=== PATIENT | female | born 1980 | race Two or more races ===

== ENCOUNTER 2019-03-03 09:21 | Emergency (ER) | payer OTHER ==
[2019-03-03 09:38] VITALS: BP 121/89; PULSE 56; TEMP 98; BMI 25.8
[2019-03-03] MEDS ORDERED: ONDANSETRON 4 MG/2 ML VIAL IVPUSH ONE (09:44)
[2019-03-03] MEDS ORDERED: PANTOPRAZOLE SODIUM 40 MG in SODIUM CHLORIDE 100 ML IVPB ONE (09:44)
[2019-03-03] MEDS ORDERED: KETOROLAC TROMETHAMINE 30 MG/1 ML VIAL IVPUSH ONE (09:44)
[2019-03-03] MEDS ORDERED: SODIUM CHLORIDE 1,000 ML IV STA (09:44)
--- NOTE | 2019-03-03 09:53 | PDOC ---
History of Present Illness - General Chief Complaint: Pain, Acute Stated Complaint: abd.pain/vomiting w/diarrhea. Time Seen by Provider: 03/03/19 09:43 History Source: Patient Exam Limitations: No Limitations - History of Present Illness Travel History: No Initial Comments: 03/03/19 09:40 38-year-old female presents to ED with complaints of nausea vomiting diarrhea since this morning. Patient states similar symptoms in the past was prescribed omeprazole but does not take that medication anymore. Patient denies medical history otherwise recent travel, recent illness, recent sick contacts. Patient denies smoking and alcohol intake. Patient has no urinary complaints or irregular menstruation pattern. Patient states generalized abdominal cramping greater in the upper mid abdomen. Timing/Duration: reports: constant Quality: reports: moderate, cramping Abdominal Pain Onset Location: reports: epigastric, generalized abdomen Pain Radiation: reports: epigastric Activities at Onset: reports: none Aggravating Factors: improves with: None Alleviating Factors: improves with: Vomiting Past History - Travel Traveled outside of the country in the last 30 days: No Close contact w/someone who was outside of country & ill: No - Past Medical History Allergies/Adverse Reactions: Allergies Allergy/AdvReac Type Severity Reaction Status Date / Time No Known Drug Allergies Allergy Verified 10/03/12 08:05 Home Medications: Ambulatory Orders NK [No Known Home Medication] 03/03/19 Anemia: No Asthma: No Cancer: No Cardiac Disorders: No CVA: No COPD: No CHF: No Dementia: No Diabetes: No GI Disorders: No Disorders: No HTN: No Hypercholesterolemia: No Liver Disease: No Seizures: No Thyroid Disease: No - Surgical History Abdominal Surgery: No Appendectomy: No Cardiac Surgery: No Cholecystectomy: No Lung Surgery: No Neurologic Surgery: No Orthopedic Surgery: No - Immunization History Immunization Up to Date: No - Psycho Social/Smoking Cessation Hx Smoking History: Never smoked Have you smoked in the past 12 months: No Information on smoking cessation initiated: No Hx Alcohol Use: No Drug/Substance Use Hx: No Substance Use Type: None Hx Substance Use Treatment: No Patient Lives Alone: No Lives with/in: spouse/SO Abd/GI Specific PMHX - Complaint Specific PMHX GERD: Yes Review of Systems - Review of Systems Able to Perform ROS?: Yes Constitutional: No: Symptoms Reported HEENTM: No: Symptoms Reported Respiratory: No: Symptoms reported Cardiac (ROS): No: Symptoms Reported ABD/GI: Yes: Diarrhea, Nausea, Poor Appetite, Poor Fluid Intake, Vomiting, Abdominal cramping. No: Constipated : No: Symptoms Reported Musculoskeletal: No: Symptoms Reported Integumentary: No: Symptoms Reported Neurological: No: Symptoms reported Endocrine: No: Symptoms Reported *Physical Exam - Vital Signs Last Vital Signs Temp Pulse Resp BP Pulse Ox 98.0 F 56 L 18 121/89 98 03/03/19 09:24 03/03/19 09:24 03/03/19 09:24 03/03/19 09:24 03/03/19 09:24 - Physical Exam General Appearance: Yes: Nourished, Appropriately Dressed. No: Apparent Distress HEENT: positive: EOMI, STEVE. negative: Pale Conjunctivae Neck: positive: Normal Thyroid Respiratory/Chest: positive: Lungs Clear, Normal Breath Sounds. negative: Respiratory Distress, Accessory Muscle Use Cardiovascular: positive: Regular Rhythm, Regular Rate. negative: Murmur Gastrointestinal/Abdominal: positive: Soft, Tenderness (Epigastric) Musculoskeletal: negative: CVA Tenderness Extremity: positive: Normal Inspection Integumentary: positive: Normal Color, Warm, Moist Neurologic: positive: Motor Strength 5/5 (Ambulatory) ED Treatment Course - LABORATORY CBC & Chemistry Diagram: 03/03/19 10:00 03/03/19 10:00 Medical Decision Making - Medical Decision Making 03/03/19 09:54 chief complaint: Nausea vomiting diarrhea generalized abdominal cramping grade and epi gastric region since this a.m. Patient states similar symptoms in the past and was given omeprazole which she has not taken in approximately 9 months. No other complaints Exam: Patient actively vomiting clear liquid fluid and appears uncomfortable. Patient had tenderness to the epigastric region. No CVA tenderness or lower abdominal tenderness. Plan: Labs, urine, IV access, Zofran, Protonix and IV fluids Toradol, 03/03/19 11:17 Laboratory Tests 03/03/19 03/03/19 03/03/19 10:00 10:00 10:00 WBC 5.5 Hgb 12.6 Hct 38.9 Plt Count 264 Absolute Neuts (auto) 3.2 Neutrophils % 58.7 D Random Glucose Calcium Magnesium Total Bilirubin AST ALT Alkaline Phosphatase Total Protein Albumin Urine Appearance Cloudy Urine pH 5.5 Ur Specific [place] 1.042 H Ur Leukocyte Esterase 1+ H Urine WBC (Auto) 70 Urine RBC (Auto) 1 Urine Casts (Auto) 45 U Epithel Cells (Auto) 8.0 Urine Bacteria (Auto) 156.7 Urine HCG, Qual Negative 03/03/19 03/03/19 10:00 10:00 WBC Hgb Hct Plt Count Absolute Neuts (auto) Neutrophils % Random Glucose 113 H Calcium 8.5 Magnesium 2.0 Total Bilirubin 0.1 L AST 10 L ALT 20 Alkaline Phosphatase 67 Total Protein 6.9 Albumin 3.3 L Urine Appearance Urine pH Ur Specific [place] Ur Leukocyte Esterase Urine WBC (Auto) Urine RBC (Auto) Urine Casts (Auto) U Epithel Cells (Auto) Urine Bacteria (Auto) Urine HCG, Qual Awaiting Urine culture collection. 03/03/19 11:58 Urine culture sent. Patient states feeling much better and amatory in the ER. Patient requesting to go home. Patient will be given a prescription for antibiotic secondary to bacteria in urine along with Zofran for nausea. Discharge - Discharge Information Problems reviewed: Yes Clinical Impression/Diagnosis: Nausea vomiting and diarrhea Condition: Improved Disposition: HOME - Follow up/Referral Referrals: Mendel Riggs MD [Primary Care Provider] - - Patient Discharge Instructions Patient Printed Discharge Instructions: Nausea and Vomiting-Adult Additional Instructions: Please take medication as needed for nausea. Please take antibiotics as prescribed for urinary tract infection. Drink plenty of fluids. Avoid spicy greasy food for the next 48 hours and then you may advance your diet as tolerated - Post Discharge Activity
[2019-03-03] MEDS ORDERED: ONDANSETRON 4 MG/2 ML VIAL ONE (09:57)
[2019-03-03] MEDS ORDERED: PANTOPRAZOLE SODIUM 40 MG/100 ML BAG IVPB ONE (09:57)
[2019-03-03] MEDS ORDERED: KETOROLAC TROMETHAMINE 30 MG/1 ML VIAL ONE (09:57)
[2019-03-03 10:07] LABS: BASO % 0.8 % (0-2.0); HEMATOCRIT 38.9 % (32.4-45.2); HEMOGLOBIN 12.6 GM/dL (10.7-15.3); LYMPH % 33.9 % (8-40); MCH 27.2 pg (25.7-33.7); MCHC 32.4 g/dl (32.0-36.0); MEAN PLT VOLUME 7.6 fl (7.5-11.1); MONO % 4.6 % (3.8-10.2); NEUT % 58.7 % (42.8-82.8); PLATELET COUNT 264 K/MM3 (134-434); RBC 4.63 M/mm3 (3.60-5.2); RDW 16.1 % (11.6-15.6); WHITE BLOOD COUNT 5.5 K/mm3 (4.0-10.0)
[2019-03-03 10:09] LABS: HYALINE CASTS 45 /lpf (0-8); PH,URINE 5.5 (5.0-8.0); URINE APPEARANCE CLOUDY; URINE BACTERIA 156.7 /hpf (NEGATIVE); URINE BILIRUBIN NEGATIVE (NEGATIVE); URINE COLOR YELLOW; URINE GLUCOSE (UA) NEGATIVE (NEGATIVE); URINE KETONE NEGATIVE (NEGATIVE); URINE LEUK ESTERASE 1+ (NEGATIVE); URINE NITRITE NEGATIVE (NEGATIVE); URINE PROTEIN TRACE (NEGATIVE); URINE RBC 1 /hpf (0-4); URINE UROBILINOGEN 0.2 mg/dL (0.2-1.0); URINE WBC 70 /hpf (0-5)
[2019-03-03 10:36] LABS: ALBUMIN 3.3 g/dl (3.4-5.0); BILIRUBIN,TOTAL 0.1 mg/dL (0.2-1); BLOOD UREA NITROGEN 15.2 mg/dL (7-18); CALCIUM 8.5 mg/dL (8.5-10.1); CREATININE 0.8 mg/dL (0.55-1.3); POTASSIUM 4.2 mmol/L (3.5-5.1); TOT PROT 6.9 g/dl (6.4-8.2)
[2019-03-03 11:43] LABS: URINE CRYSTALS MODERATE /hpf
== END 2019-03-03 12:11 | disposition home or self-care (01) ==
LOC: JER 09:21
PROC: 3E033GC Introduction of Other Therapeutic Substance into Peripheral Vein, Percutaneous Approach (ICD-10-PCS; principal; 2019-03-03)
PROC: 3E033GC Introduction of Other Therapeutic Substance into Peripheral Vein, Percutaneous Approach (ICD-10-PCS; 2019-03-03)
PROC: 3E0333Z Introduction of Anti-inflammatory into Peripheral Vein, Percutaneous Approach (ICD-10-PCS; 2019-03-03)
DX: N39.0 Urinary tract infection, site not specified (principal); R11.2 Nausea with vomiting, unspecified; R19.7 Diarrhea, unspecified
CPT/HCPCS: 36415; 80053; 81003; 83735; 84703; 85025; 87086; 96365; 96375; 99282-25; J7030

== ENCOUNTER 2019-04-09 07:03 | Emergency (ER) | payer OTHER ==
[2019-04-09 07:14] VITALS: BP 139/85; PULSE 60; TEMP 97.5; BMI 26.5
[2019-04-09] MEDS ORDERED: morphine CARPU-JECT 2 MG/1 ML DISP.SYRIN IVPUSH ONE (08:01)
[2019-04-09] MEDS ORDERED: ONDANSETRON 4 MG/2 ML VIAL IVPUSH ONE (08:01)
[2019-04-09] MEDS ORDERED: SODIUM CHLORIDE 0.9% 500 ML INFUS.BAG IV ONE (08:02)
--- NOTE | 2019-04-09 08:23 | PDOC ---
*Physical Exam - Vital Signs Last Vital Signs Temp Pulse Resp BP Pulse Ox 97.5 F L 60 17 139/85 100 04/09/19 07:12 04/09/19 07:12 04/09/19 07:12 04/09/19 07:12 04/09/19 07:12 - Physical Exam Comments: 04/09/19 08:22 The patient was examined by [MAKAYLA Elizabeth] under my direct supervision. I personally evaluated the patient. I concur with the above findings and the plan of care. ED Treatment Course - LABORATORY CBC & Chemistry Diagram: 04/09/19 08:51 04/09/19 08:51 Discharge - Discharge Information Problems reviewed: Yes Clinical Impression/Diagnosis: Abdominal pain Qualifiers: Abdominal location: unspecified location Qualified Code(s): R10.9 - Unspecified abdominal pain Condition: Stable Disposition: HOME - Follow up/Referral Referrals: Mendel Riggs MD [Primary Care Provider] - - Patient Discharge Instructions Additional Instructions: Follow-up with your doctor and a general surgeon within 1 week Return to the ED if worsening abdominal pain, nausea, vomiting, fever, chills You must avoid fatty, greasy foods in order to prevent abdominal pain given that you have a large gallstone. - Post Discharge Activity
[2019-04-09] MEDS ORDERED: MORPHINE SULFATE 2 MG/ML VIAL ONE (08:24)
[2019-04-09] MEDS ORDERED: ONDANSETRON 4 MG/2 ML VIAL ONE (08:25)
[2019-04-09 09:12] LABS: BASO % 0.4 % (0-2.0); EOS % 0.1 % (0-4.5); HEMATOCRIT 40.4 % (32.4-45.2); HEMOGLOBIN 13.3 GM/dL (10.7-15.3); LYMPH % 18.4 % (8-40); MCH 27.2 pg (25.7-33.7); MCHC 32.9 g/dl (32.0-36.0); MEAN CELL VOLUME 82.6 fl (80-96); MEAN PLT VOLUME 7.8 fl (7.5-11.1); MONO % 2.3 % (3.8-10.2); NEUT % 78.8 % (42.8-82.8); PLATELET COUNT 254 K/MM3 (134-434); RDW 18.2 % (11.6-15.6); WHITE BLOOD COUNT 5.3 K/mm3 (4.0-10.0)
[2019-04-09 09:17] LABS: ALBUMIN 3.9 g/dl (3.4-5.0); BILIRUBIN,TOTAL 0.3 mg/dL (0.2-1); BLOOD UREA NITROGEN 9.8 mg/dL (7-18); CALCIUM 9.6 mg/dL (8.5-10.1); CREATININE 0.7 mg/dL (0.55-1.3); MAGNESIUM 2.1 mg/dL (1.8-2.4); POTASSIUM 4.3 mmol/L (3.5-5.1); TOT PROT 7.6 g/dl (6.4-8.2)
[2019-04-09 09:42] LABS: INR 0.96 (0.83-1.09); PROTHROMBIN TIME (PATIENT) 11.3 SEC (9.7-13.0)
[2019-04-09 09:45] LABS: ACTIVATED PTT 29.6 SECONDS (25.2-36.5)
--- NOTE | 2019-04-09 11:02 | PDOC ---
History of Present Illness - General Chief Complaint: Pain Stated Complaint: ABD PAIN Time Seen by Provider: 04/09/19 07:46 History Source: Patient Exam Limitations: No Limitations - History of Present Illness Initial Comments: 04/09/19 10:57 38-year-old female denies past medical history presents with midepigastric pain radiating to the back which awoke her from sleep at 1 AM today. Developed nausea and vomiting at 3 AM, had 5 episodes of non-bloody vomiting. Had [place] food for dinner last night. States that she had a normal endoscopy by a GI doctor on March 16. Denies fever, chills, diarrhea, chest pain, shortness of breath or any other symptoms. LMP 04/03/19. Did not take any pain meds prior to arrival. ROS: GENERAL/CONSTITUTIONAL: No fever, chills, weakness, dizziness HEAD, EYES, EARS, NOSE AND THROAT: No changes in vision, No ear pain or discharge, No sore throat CARDIOVASCULAR: No chest pain RESPIRATORY: No shortness of breath or cough GASTROINTESTINAL: Positive abdominal pain, nausea, vomiting, denies diarrhea or constipation GENITOURINARY: No dysuria MUSCULOSKELETAL: No neck or back pain SKIN: No rash NEUROLOGIC: No headache, vertigo, loss of consciousness, or loss of sensation PE: GENERAL: Appears uncomfortable HEAD: NCAT EYES: Pupils equal, round and reactive to light, sclera anicteric, conjunctiva clear ENT: pharynx: no erythema, no exudate, uvula midline NECK: supple CHEST: nontender RESP: clear, no w/r/r CARDIO: rrr, no m/g/r ABD: +BS, soft, midepigastric tenderness to palpation, positive right upper quadrant tenderness to palpation, no guarding, no rebound BACK: no midline spinal ttp, no CVAT EXTREMITIES: Normal range of motion, no edema NEUROLOGICAL: Normal speech, normal gait SKIN: Warm, Dry Is this a multiple visit Asthma Patient?: No Past History - Past Medical History Allergies/Adverse Reactions: Allergies Allergy/AdvReac Type Severity Reaction Status Date / Time No Known Drug Allergies Allergy Verified 04/09/19 07:14 Home Medications: Ambulatory Orders NK [No Known Home Medication] 04/09/19 Anemia: No Asthma: No Cancer: No Cardiac Disorders: No CVA: No COPD: No CHF: No Dementia: No Diabetes: No GI Disorders: No Disorders: No HTN: No Hypercholesterolemia: No Liver Disease: No Seizures: No Thyroid Disease: No - Surgical History Abdominal Surgery: No (LIPOSUCTION) Appendectomy: No Cardiac Surgery: No Cholecystectomy: No Lung Surgery: No Neurologic Surgery: No Orthopedic Surgery: No - Immunization History Immunization Up to Date: No - Psycho Social/Smoking Cessation Hx Smoking History: Never smoked Have you smoked in the past 12 months: No Information on smoking cessation initiated: No Hx Alcohol Use: No Drug/Substance Use Hx: No Substance Use Type: None Hx Substance Use Treatment: No *Physical Exam - Vital Signs Last Vital Signs Temp Pulse Resp BP Pulse Ox 97.5 F L 60 17 139/85 9 L 04/09/19 07:12 04/09/19 07:12 04/09/19 07:12 04/09/19 07:12 04/09/19 09:01 ED Treatment Course - LABORATORY CBC & Chemistry Diagram: 04/09/19 08:51 04/09/19 08:51 - ADDITIONAL ORDERS Additional order review: Laboratory Results 04/09/19 04/09/19 04/09/19 08:51 08:51 08:51 PT with INR 11.30 INR 0.96 PTT (Actin FS) 29.6 Sodium Potassium Chloride Carbon Dioxide Anion Gap BUN Creatinine Est GFR (CKD-EPI)AfAm Est GFR (CKD-EPI)NonAf Random Glucose Calcium Magnesium Cancelled Total Bilirubin AST ALT Alkaline Phosphatase Total Protein Albumin Lipase Cancelled 04/09/19 08:51 PT with INR INR PTT (Actin FS) Sodium 137 Potassium 4.3 Chloride 103 Carbon Dioxide 30 Anion Gap 4 L BUN 9.8 Creatinine 0.7 Est GFR (CKD-EPI)AfAm 128.28 Est GFR (CKD-EPI)NonAf 110.69 Random Glucose 120 H Calcium 9.6 Magnesium 2.1 Total Bilirubin 0.3 AST 36 ALT 52 Alkaline Phosphatase 79 Total Protein 7.6 Albumin 3.9 Lipase 82 04/09/19 08:51 RBC 4.90 MCV 82.6 MCHC 32.9 RDW 18.2 H MPV 7.8 Neutrophils % 78.8 D Lymphocytes % 18.4 D Monocytes % 2.3 L Eosinophils % 0.1 D Basophils % 0.4 - RADIOLOGY Radiology Studies Ordered: Category Date Time Status ABDOMEN US -LIMITED [US] Stat Ultrasound 04/09/19 07:55 Completed - Medications Given in the ED: ED Medications Discontinued Medications Generic Name Dose Route Start Last Admin Trade Name Mary PRN Reason Stop Dose Admin Morphine Sulfate 2 mg 04/09/19 08:01 04/09/19 08:30 Morphine Injection - IVPUSH 04/09/19 08:02 2 mg ONCE ONE Administration Ondansetron HCl 4 mg 04/09/19 08:01 04/09/19 08:30 Zofran Injection IVPUSH 04/09/19 08:02 4 mg ONCE ONE Administration Sodium Chloride 1,000 ml 04/09/19 08:02 04/09/19 08:59 Normal Saline - IV 04/09/19 08:03 1,000 ml ONCE ONE Administration Medical Decision Making - Medical Decision Making 04/09/19 11:02 38-year-old female presents with midepigastric and right upper quadrant pain radiating to the back at 1 AM today, then developed nausea and vomiting at 3 AM. Order IV fluids IV morphine, Zofran Labs Urine Abdominal ultrasound Reassess [id number] Discussed ultrasound results with patient She has a large calculus within the neck of the gallbladder Her pain has resolved after IV morphine and fluids patient understands she needs to follow-up with her doctor and a general surgeon within 1 week Dietary modifications discussed Return precautions given Discharge - Discharge Information Problems reviewed: Yes Clinical Impression/Diagnosis: Abdominal pain Condition: Stable Disposition: HOME - Follow up/Referral Referrals: Mendel Riggs MD [Primary Care Provider] - - Patient Discharge Instructions Additional Instructions: Follow-up with your doctor and a general surgeon within 1 week Return to the ED if worsening abdominal pain, nausea, vomiting, fever, chills You must avoid fatty, greasy foods in order to prevent abdominal pain given that you have a large gallstone. - Post Discharge Activity
[2019-04-09 11:41] LABS: PH,URINE 8.5 (5.0-8.0); URINE APPEARANCE CLEAR; URINE BILIRUBIN NEGATIVE (NEGATIVE); URINE COLOR YELLOW; URINE GLUCOSE (UA) NEGATIVE (NEGATIVE); URINE KETONE NEGATIVE (NEGATIVE); URINE LEUK ESTERASE NEGATIVE (NEGATIVE); URINE NITRITE NEGATIVE (NEGATIVE); URINE PROTEIN NEGATIVE (NEGATIVE); URINE UROBILINOGEN 0.2 mg/dL (0.2-1.0)
== END 2019-04-09 11:39 | disposition home or self-care (01) ==
LOC: JER 07:03
PROC: 3E033NZ Introduction of Analgesics, Hypnotics, Sedatives into Peripheral Vein, Percutaneous Approach (ICD-10-PCS; principal; 2019-04-09)
PROC: 3E033GC Introduction of Other Therapeutic Substance into Peripheral Vein, Percutaneous Approach (ICD-10-PCS; 2019-04-09)
PROC: 3E0337Z Introduction of Electrolytic and Water Balance Substance into Peripheral Vein, Percutaneous Approach (ICD-10-PCS; 2019-04-09)
DX: R10.9 Unspecified abdominal pain (principal)
CPT/HCPCS: 36415; 76705-TC; 80053; 81003; 83690; 83735; 84703; 85025; 85610; 85730; 87086; 99283-25

== ENCOUNTER 2021-09-05 05:15 | Day surgery (SDC) | payer OTHER ==
[2021-09-02 15:06] VITALS: BMI 28.3
[2021-09-05 09:21] LABS: EPI CELLS >36 /uL (0-25.1); HYALINE CASTS 0 /uL (0-3.1); PH,URINE 5.5 (5.0-8.0); URINE APPEARANCE CLOUDY; URINE BACTERIA 395 /uL (0-1359); URINE BILIRUBIN NEGATIVE (NEGATIVE); URINE COLOR ORANGE; URINE GLUCOSE (UA) NEGATIVE (NEGATIVE); URINE KETONE NEGATIVE (NEGATIVE); URINE LEUK ESTERASE TRACE (NEGATIVE); URINE NITRITE NEGATIVE (NEGATIVE); URINE PROTEIN NEGATIVE (NEGATIVE); URINE RBC 3770 /uL (0-23.9); URINE UROBILINOGEN 0.2 mg/dL (0.2-1.0); URINE WBC 39 /uL (0-25.8)
[2021-09-05] MEDS ORDERED: LIDOCAINE 1%/EPI 1:100000 (20 ML MULTI DOSE VIAL) ONE (10:10)
[2021-09-05] MEDS ORDERED: LIDOCAINE HCL 2% 100 MG/5 ML DISP.SYRIN ONE (10:23)
[2021-09-05] MEDS ORDERED: MIDAZOLAM HCL 2 MG/2 ML SINGLE DOSE VIAL ONE (10:23)
[2021-09-05] MEDS ORDERED: DEXAMETHASONE SOD PHOSPHATE 4 MG/1 ML VIAL ONE (10:23)
[2021-09-05] MEDS ORDERED: PROPOFOL 20 ML ONE (10:23)
[2021-09-05] MEDS ORDERED: KETOROLAC TROMETHAMINE 30 MG/1 ML VIAL ONE (10:23)
[2021-09-05] MEDS ORDERED: ELECTROLYTE-148 SOLN 1,000 ML IV SCH (10:30)
[2021-09-05] MEDS ORDERED: PROMETHAZINE HCL 25 MG/1 ML VIAL IVPUSH PRN (11:20)
[2021-09-05] MEDS ORDERED: LACTATED RINGERS SOLUTION 1,000 ML IV SCH (11:30)
[2021-09-05 14:28] VITALS: BP 102/68; PULSE 72; TEMP 98.4
== END 2021-09-05 13:45 | disposition home or self-care (01) ==
LOC: JASU-SURG 05:15
PROVIDERS: ATTEND Urology
PROC: 0TSD0ZZ Reposition Urethra, Open Approach (ICD-10-PCS; principal; 2021-09-05 09:30)
DX: N39.3 Stress incontinence (female) (male) (principal)
CPT/HCPCS: 57288; C1771; 81003; 81025; 87086; 88302-TC; 94760